=== PATIENT | female | born 1970 | race African-American/Black ===

== ENCOUNTER 2019-08-17 00:14 | Emergency (ER) | payer MEDICAID ==
[~2019-08-17] VITALS: Ht 157.5 cm; Wt 52.0 kg
[2019-08-17] MEDS ORDERED: FERR15DR7 PO (00:22)
[2019-08-17] MEDS ORDERED: CLIN300C11 PO (00:23)
[2019-08-17] MEDS ORDERED: IBUP-2030 PO (00:23)
[2019-08-17] MEDS ORDERED: ASPIRIN 81MG TABLET PO ONE (00:45)
[2019-08-17] MEDS ORDERED: NITROGLYCERIN 0.4MG TABLET SL SL PRN (00:45)
[2019-08-17 01:07] LABS: BASOPHILS % 0.6 % (0.0-2.0); EOSINOPHILS % 1.2 % (0.0-5.0); HEMATOCRIT. 31.7 % (36.0-48.0); HEMOGLOBIN. 10.8 g/dL (12.0-16.0); LYMPHOCYTES % 25.9 % (20.0-50.0); MEAN CORPUSCULAR HEMOGLOBIN 31.3 pg (28.0-32.0); MEAN CORPUSCULAR VOLUME 92.2 fL (81.0-99.0); MEAN PLATELET VOLUME 7.9 fl (7.4-10.4); MONOCYTES % 9.2 % (2.0-8.0); NEUTROPHILS % 63.1 % (40.0-76.0); PLATELET 219 x1000/uL (130-400); RED BLOOD CELL COUNT 3.44 mill/uL (4.2-5.4); RED CELL DISTRIBUTION WIDTH 12.6 % (11.6-14.6)
[2019-08-17 01:14] LABS: CHLORIDE 102 mEq/L (98-107)
[2019-08-17 01:45] LABS: *AMPHETAMINES SCREEN URINE NEGATIVE (NEGATIVE); *BARBITURATES SCREEN URINE NEGATIVE (NEGATIVE); *BENZODIAZEPINES SCREEN URINE NEGATIVE (NEGATIVE); *COCAINE SCREEN URINE NEGATIVE (NEGATIVE); CANNABINOID URINE SCREEN NEGATIVE (NEGATIVE); METHADONE URINE SCREEN NEGATIVE (NEGATIVE); OPIATES URINE SCREEN NEGATIVE (NEGATIVE); PHENCYCLIDINE URINE SCREEN NEGATIVE (NEGATIVE)
[2019-08-17] MEDS ORDERED: IOHEXOL-350 100 ML BOTTLE ONE (03:34)
[2019-08-17 05:40] VITALS: BP 111/71
== END 2019-08-17 06:14 | disposition home or self-care (01) ==
LOC: ER 00:14
DX: R07.89 Other chest pain (principal); K04.7 Periapical abscess without sinus; D64.9 Anemia, unspecified; F41.9 Anxiety disorder, unspecified; N60.01 Solitary cyst of right breast; M27.2 Inflammatory conditions of jaws
CPT/HCPCS: 36415; 71045; 71275; 80053; 80305; 81025; 83880; 84484; 85025; 85379; 93005; 99284; Q9967; Z7610

== ENCOUNTER 2019-09-03 09:32 | Emergency (ER) | payer MEDICAID ==
[~2019-09-03] VITALS: Ht 160 cm; Wt 53.0 kg
[~2019-09-03 09:32] MED LIST: CLIN300C11 PO; FERR15DR7 PO; IBUP-2030 PO
[2019-09-03 09:55] VITALS: BP 112/64
[2019-09-03] MEDS: IBUPROFEN 600MG TABLET PO ONE (10:45)
== END 2019-09-03 10:59 | disposition home or self-care (01) ==
LOC: ER 09:32
DX: L02.411 Cutaneous abscess of right axilla (principal); F41.9 Anxiety disorder, unspecified; Z88.5 Allergy status to narcotic agent; Z88.8 Allergy status to other drugs, medicaments and biological substances; Z98.890 Other specified postprocedural states
CPT/HCPCS: 99282

== ENCOUNTER 2019-11-18 21:13 | Emergency (ER) | payer MEDICAID ==
[~2019-11-18] VITALS: Ht 157.5 cm; Wt 52.0 kg
[2019-11-19] MEDS ORDERED: ACETAMINOPHEN 325MG TABLET PO ONE (01:15)
[2019-11-19 03:03] VITALS: BP 114/70
== END 2019-11-19 03:07 | disposition home or self-care (01) ==
LOC: ER 21:13
DX: S00.03XA Contusion of scalp, initial encounter (principal); S60.222A Contusion of left hand, initial encounter; F41.9 Anxiety disorder, unspecified; Z88.1 Allergy status to other antibiotic agents; Z88.5 Allergy status to narcotic agent; V19.3XXA Pedal cyclist (driver) (passenger) injured in unspecified nontraffic accident, initial encounter; Y93.89 Activity, other specified; Y92.488 Other paved roadways as the place of occurrence of the external cause
CPT/HCPCS: 73130; 81025; 99284

== ENCOUNTER 2020-06-28 20:09 | Emergency (ER) | payer MEDICAID ==
[~2020-06-28] VITALS: Ht 157.5 cm; Wt 52.0 kg
[2020-06-28 21:32] LABS: CLARITY URINE CLEAR (CLEAR); COLOR URINE YELLOW (YELLOW); KETONES URINE NEGATIVE (NEGATIVE); LEUKOCYTE ESTERASE URINE NEGATIVE (NEGATIVE); NITRITE URINE NEGATIVE (NEGATIVE); OCCULT BLOOD URINE NEGATIVE (NEGATIVE); PH URINE 7.5 (4.5-8.0); PROTEIN URINE NEGATIVE (NEGATIVE); SPECIFIC GRAVITY URINE 1.006 (1.005-1.030); UROBILINOGEN URINE 0.2 E.U./dL (0.2-1.0)
[2020-06-28] MEDS ORDERED: KETOROLAC 30MG/ML VIAL IM ONE (22:45)
[2020-06-28 23:06] LABS: BASOPHILS % 0.4 % (0.0-2.0); EOSINOPHILS % 1.2 % (0.0-5.0); HEMATOCRIT. 36.8 % (36.0-48.0); HEMOGLOBIN. 12.5 g/dL (12.0-16.0); LYMPHOCYTES % 40.1 % (20.0-50.0); MEAN CORPUSCULAR HEMOGLOBIN 31.8 pg (28.0-32.0); MEAN CORPUSCULAR VOLUME 93.8 fL (81.0-99.0); MEAN PLATELET VOLUME 7.8 fl (7.4-10.4); MONOCYTES % 7.6 % (2.0-8.0); NEUTROPHILS % 50.7 % (40.0-76.0); PLATELET 232 x1000/uL (130-400); RED BLOOD CELL COUNT 3.93 mill/uL (4.2-5.4); RED CELL DISTRIBUTION WIDTH 12.8 % (11.6-14.6)
[2020-06-28 23:07] LABS: CHLORIDE 106 mEq/L (98-107)
[2020-06-29 00:14] VITALS: BP 119/67
== END 2020-06-29 00:15 | disposition home or self-care (01) ==
LOC: ER 20:09
DX: R10.12 Left upper quadrant pain (principal); K59.00 Constipation, unspecified; D64.9 Anemia, unspecified; F41.9 Anxiety disorder, unspecified; Z88.1 Allergy status to other antibiotic agents; Z88.3 Allergy status to other anti-infective agents; Z88.6 Allergy status to analgesic agent
CPT/HCPCS: 36415; 74176; 80053; 81003; 81025; 83690; 85025; 96372; 99284; J1885

== ENCOUNTER 2021-01-09 11:54 | Emergency (ER) | payer MEDICAID ==
[~2021-01-09] VITALS: Ht 160 cm; Wt 55.0 kg
[~2021-01-09 11:54] MED LIST changes: -CLIN300C11 PO; +CLIN300C12 PO
[2021-01-09] MEDS ORDERED: SODIUM CHLORIDE 0.9% 1,000 ML IV ONE (13:15)
[2021-01-09 14:13] LABS: BASOPHILS % 0.2 % (0.0-2.0); EOSINOPHILS % 0.1 % (0.0-5.0); HEMATOCRIT. 27.5 % (36.0-48.0); HEMOGLOBIN. 9.2 g/dL (12.0-16.0); LYMPHOCYTES % 22.7 % (20.0-50.0); MEAN CORPUSCULAR VOLUME 92.7 fL (81.0-99.0); MEAN PLATELET VOLUME 7.3 fl (7.4-10.4); MONOCYTES % 5.3 % (2.0-8.0); NEUTROPHILS % 71.7 % (40.0-76.0); PLATELET 194 x1000/uL (130-400); RED BLOOD CELL COUNT 2.97 mill/uL (4.2-5.4); RED CELL DISTRIBUTION WIDTH 15.2 % (11.6-14.6)
[2021-01-09 14:17] LABS: CHLORIDE 100 mEq/L (98-107)
[2021-01-09] MEDS ORDERED: POTASSIUM CHLORIDE 20MEQ TABLET SR PO NR (15:15)
[2021-01-09 16:18] VITALS: BP 119/77
== END 2021-01-09 16:22 | disposition home or self-care (01) ==
LOC: ER 11:54
DX: R55 Syncope and collapse (principal); D61.818 Other pancytopenia; D64.9 Anemia, unspecified; F41.9 Anxiety disorder, unspecified; Z85.6 Personal history of leukemia; Z98.890 Other specified postprocedural states; Z88.8 Allergy status to other drugs, medicaments and biological substances
CPT/HCPCS: 36415; 70450; 71045; 80053; 83735; 83880; 84484; 85025; 93005; 96360; 99285; J7030